=== PATIENT | female | born 1975 | race Caucasian/White ===

== ENCOUNTER → 2023-12-14 | Day surgery (SDC) | payer OTHER ==
[~2023-12-14] MED LIST: LIDOCAINE HCL 2% LOCAL INJ 5 ML SDV VIAL INJ ONE; LIPITOR10 MG PO; MIDAZOLAM HCL 2 MG/2 ML VIAL ONE; PROPOFOL IV EMULSION 10 MG/ML 20 ML VIAL ONE; VENLAFAXINE HCL75 M2 PO
[2023-12-14] MEDS: LACTATED RINGER'S 1,000 ML ONE (07:45)
[2023-12-14 09:28] VITALS: TEMP 97.1
[2023-12-14 09:48] VITALS: BP 100/74; PULSE 72; RESP 18; O2SAT 99
== END | disposition home or self-care (01) ==
LOC: OR 07:12
PROVIDERS: ATTEND Internal Medicine Gastroenterology
DX: Z12.11 Encounter for screening for malignant neoplasm of colon (principal); K63.89 Other specified diseases of intestine; K57.30 Diverticulosis of large intestine without perforation or abscess without bleeding; E78.5 Hyperlipidemia, unspecified; F17.290 Nicotine dependence, other tobacco product, uncomplicated; Z79.899 Other long term (current) drug therapy
CPT/HCPCS: 45380; J2001; J2250; J2704; J7121